=== PATIENT | female | born 2000 | race African-American/Black ===

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

== ENCOUNTER 2021-02-02 15:44 | Inpatient (IN) ==
[2021-02-02] MEDS ORDERED: Lactated Ringers 1000 ml BAG 1,000 ML IV ONE (16:49)
[2021-02-02] MEDS ORDERED: Dinoprostone 10 MG VAG.SUPP VAGINAL ONE (16:49)
[2021-02-02] MEDS ORDERED: Penicillin G Potassium IV 5,000,000 UNITS in NS 0.9% 100 ml BAG 100 ML IVPB ONE (16:49)
[2021-02-02] MEDS ORDERED: Buffered Lidocaine 1% SYRIN 1 ml INTRADERM ONE (16:49)
[2021-02-02] MEDS ORDERED: Penicillin G Potassium IV 3,000,000 UNITS in NS 0.9% 100 ml BAG 100 ML IVPB SCH (17:00)
[2021-02-02] MEDS ORDERED: Lactated Ringers 1000 ml BAG 1,000 ML IV SCH (17:00)
[2021-02-02 21:44] LABS: Urine Benzodiazepine Screen None Detected (None Detect); Urine Cannabinoids Screen None Detected (None Detect); Urine Opiates Screen None Detected (None Detect)
[2021-02-02] MEDS: Lidocaine 2% JELLY 5 ML TUBE LIDO2GEL7 TOPICAL SCH (21:48)
[2021-02-03] MEDS ORDERED: Promethazine INJ(RESTRICTED) 25 MG/ML 1 ml VIAL IM ONE ×2 (00:31→11:35)
[2021-02-03] MEDS ORDERED: Morphine 10 MG/ML VIAL (1 ml) IM ONE ×2 (00:31→11:34)
[2021-02-03 19:09] LABS: ABS Basophils 0.1 10^3/ul (0-0.2); ABS Eosinophils 0.1 10^3/ul (0-0.6); ABS Lymphocytes 1.4 10^3/ul (1.0-4.8); ABS Monocytes 0.5 10^3/ul (0-0.8); ABS Neutrophils 11.5 10^3/ul (1.5-7.7); Eosinophil % 0.5 %; Hematocrit 34 % (35-47); Hemoglobin 11.4 g/dL (12.0-16.0); Lymphocyte % 10.6 %; Mean Corpuscular HGB Conc 34 g/dL (31-36); Mean Corpuscular Hemoglobin 26 pg (27-31); Mean Corpuscular Volume 79 fL (80-97); Mean Platelet Volume 7.8 fL (7.4-10.4); Platelet Count 292 10^3/uL (150-450); Red Blood Count 4.32 10^6 /uL (3.70-4.87); Red Cell Distribution Width 14 % (10-15); White Blood Count 13.6 10^3/uL (3.5-10.8)
[2021-02-03] MEDS ORDERED: Morphine 10 MG/ML VIAL (1 ml) IV ONE (23:25)
[2021-02-03] MEDS ORDERED: Promethazine INJ(RESTRICTED) 25 MG/ML 1 ml VIAL IV ONE (23:25)
[2021-02-04] MEDS ORDERED: Oxytocin in LR 20 UNITS/1,000 ML BAG IVPB SCH (10:00)
[2021-02-04] MEDS ORDERED: Sodium Citrate/Citric Acid LIQ 15 ML UDC ONE (16:42)
[2021-02-04] MEDS ORDERED: ceFOXitin 2 GM IVPREMIX 2 GM/50 ML BAG ONE (16:48)
[2021-02-04] MEDS ORDERED: Phenylephrine IV 10 MG/ML 1 ml VIAL ONE (17:20)
[2021-02-04] MEDS ORDERED: Morphine PF AMP (0.5MG/ML) 5 MG/10 ML AMP ONE (17:22)
[2021-02-04] MEDS ORDERED: Oxytocin 10 UNITS/ML 1 ML VIAL ONE ×2 (18:22→18:37)
[2021-02-04] MEDS ORDERED: Dexamethasone IV 4 MG/ML VIAL 1 ml VIAL ONE (18:26)
[2021-02-04] MEDS ORDERED: Ondansetron 4 mg VIAL 2 MG/ML 2 ml VIAL ONE (18:26)
[2021-02-04] MEDS ORDERED: DiMENhydriNATE IV 50 mg/ml 1 ml VIAL IV PUSH PRN (18:59)
[2021-02-04] MEDS ORDERED: Ondansetron 4 mg VIAL 2 MG/ML 2 ml VIAL IV PRN (18:59)
[2021-02-04] MEDS ORDERED: oxyCODONE/Acetamin 5/325 mg TAB PO PRN (18:59)
[2021-02-04] MEDS ORDERED: Naloxone 0.4 mg VIAL 0.4 mg/ml 1 ml VIAL IV PRN (18:59)
[2021-02-04 19:11] LABS: Urine Appearance Clear; Urine Bilirubin Negative (Negative); Urine Blood Negative (Negative); Urine Color Yellow; Urine Glucose Negative (Negative); Urine Ketones Negative (Negative); Urine Nitrite Negative (Negative); Urine Protein Negative (Negative); Urine Specific Gravity 1.011 (1.002-1.030); Urine Urobilinogen Negative (Negative)
[2021-02-04] MEDS ORDERED: Witch Hazel PAD JAR TOPICAL PRN (19:24)
[2021-02-04] MEDS ORDERED: Scopolamine PATCH Remove NOTE PATCH OFF PRN (19:54)
[2021-02-04] MEDS ORDERED: Lactated Ringers 1000 ml BAG 1,000 ML IV SCH (20:00)
[2021-02-05 07:18] LABS: ABS Lymphocytes 1.5 10^3/ul (1.0-4.8); ABS Monocytes 0.9 10^3/ul (0-0.8); ABS Neutrophils 13.2 10^3/ul (1.5-7.7); Hematocrit 27 % (35-47); Hemoglobin 9.3 g/dL (12.0-16.0); Lymphocyte % 9.8 %; Mean Corpuscular HGB Conc 34 g/dL (31-36); Mean Corpuscular Hemoglobin 27 pg (27-31); Mean Corpuscular Volume 78 fL (80-97); Mean Platelet Volume 7.5 fL (7.4-10.4); Platelet Count 269 10^3/uL (150-450); Red Blood Count 3.49 10^6 /uL (3.70-4.87); Red Cell Distribution Width 14 % (10-15); White Blood Count 15.7 10^3/uL (3.5-10.8)
[2021-02-05] MEDS ORDERED: Tetan/Diph/Pertus SYR(Tdap) 0.5 ML SYR(BOOSTRIX) use SYR contains LATEX IM ONE (09:00)
[2021-02-06] MEDS: Lidocaine 2% JELLY 5 ML TUBE LIDO2GEL7 TOPICAL SCH ×2 (06:09→10:29)
[2021-02-07] MEDS ORDERED: diPHENhydraMINE 25 mg TAB PO PRN (00:12)
[2021-02-07 07:54] VITALS: BP 129/72
== END 2021-02-07 11:15 | disposition home or self-care (01) | DRG 540 ==
LOC: MCHOBOUT 15:44 → MCHOB 16:40
PROVIDERS: ADMIT Midwife; ATTEND Midwife